=== PATIENT | female | born 1965 | race Caucasian/White ===

== ENCOUNTER 2019-01-22 15:00 | Emergency (ER) | payer BC ==
[~2019-01-22] VITALS: Ht 170.2 cm; Wt 69.4 kg
[2019-01-22] MEDS ORDERED: XANAX 0.25 MG0.25 MG PO (15:13)
[2019-01-22] MEDS ORDERED: HUMIRA10 MG/0.2 (15:15)
[2019-01-22] MEDS ORDERED: AUGMENTIN 875-1 EACH PO (15:22)
[2019-01-22 15:35] VITALS: BP 151/63
== END 2019-01-22 15:35 | disposition home or self-care (01) ==
LOC: M.ERS 15:00
DX: S01.25XA Open bite of nose, initial encounter (principal); M19.90 Unspecified osteoarthritis, unspecified site; Z88.5 Allergy status to narcotic agent; Z91.040 Latex allergy status; W54.0XXA Bitten by dog, initial encounter; Y93.89 Activity, other specified; Y92.89 Other specified places as the place of occurrence of the external cause; Y99.8 Other external cause status